=== PATIENT | female | born 1955 | race Caucasian/White ===

== ENCOUNTER 2016-08-25 22:08 | Inpatient (IN) | payer MEDICARE ==
[~2016-08-25] VITALS: Ht 160 cm; Wt 65.6 kg
[~2016-08-25 22:08] MED LIST: ACET-2605 PO; FLUT9.9S NS; LORA1TAB PO; LORA5SOL82 PO; TRAZ-115 PO
[2016-08-25 22:15] VITALS: BP 168/85; PULSE 104; RESP 24; O2SAT 93
--- NOTE | 2016-08-25 23:01 | ED.REPORT ---
HPI-General Illness Date of Service Aug 25, 2016 ED Provider: MD Ming This is a 61 year old female with a history of hereditary hemorrhagic telangiectasia, DVT, Osler-Smallwood Syndrome, chronic iron-deficiency anemia presenting with productive cough that began 3 weeks ago. Associated symptoms include vomiting, diarrhea, and fever. Diarrhea is now resolved. Reports worsening cough and shortness of breath. Denies abdominal pain, headache, bowel , or bladder changes at this time. Nursing Notes Stated Complaint: COUGH,SHORT OF BREATH Chief Complaint: Respiratory Complaints Nursing Notes Reviewed: Yes Allergies: Coded Allergies: Opioids - Morphine Analogues (Verified Adverse Reaction, Mild, Nausea, ) Scheduled PRN Lorazepam (Lorazepam) 1 Mg Tablet 1 MG PO HS PRN PRN For Anxiety or Agitation Temazepam (Temazepam) 7.5 Mg Capsule 7.5 MG PO HS PRN PRN For Insomnia General Time Seen by MD: 23:01 Chief Complaint Cough Hx Obtained From: Patient Arrived By: Walk-in Sudden in Onset?: Yes Onset Occurred: Yesterday Symptom Duration: Since onset Severity: Current: No pain currently Pertinent Negative: Pt denies other symptoms Recent Healthcare: No recent doctor visit, No recent hospitalization Similar Sx Previous: No Past Medical History Past Medical History hereditary hemorrhagic telangiectasia Thrombophlebitis (Right leg DVT 29 yrs ago) Osler-Smallwood Syndrome Chronic iron-deficiency anemia Kidney Stones (s/p lithotripsy) UTI Anxiety Depression Past Surgical History nose and kidney stone Family History hereditary hemorrhagic telangiectasia Smoking History Former Smoker Social History Alcohol Use: 1-3 per week Drug Use: Denies drug use Other Social History: Occupation lives with Ambulatory Status Independent Review of Systems Full Review of Systems Constitutional: Reports: Chills, Fever Respiratory: Reports: Prod cough, white GI: Reports: Diarrhea, Nausea, Denies: Abdominal pain, Constipation Female: Denies: Dysuria Neurologic: Denies: Headache Complete sys rev & neg: except as marked. Physical Exam Vital Signs Vital Signs Date Time Temp Pulse Resp B/P Pulse Ox O2 Delivery O2 Flow Rate FiO2 08/25/16 23:30 112 18 97 Room Air 08/25/16 22:15 37.2 104 24 168/85 93 Room Air Initial VS: Reviewed General/Constitutional: Well-developed, Well-nourished Head / Eyes: Atraumatic, Normocephalic, PERRL ENT: Mucous membranes moist, Conjunctiva normal, No scleral icterus Neck: Supple, Non-tender, Full range of motion Cardiovascular: Regular rate & rhythm, Heart sounds normal, Intact distal pulses Abdomen / GI: Soft, Non-tender, No guarding, No rebound, No distention Extremities: Vascular intact, Neuro intact, No swelling, No tenderness Skin: Warm, Dry, No cyanosis Neurologic: Alert, Oriented, Nonfocal Psychiatric: Mood/affect normal, Behavior normal, Normal thought content Respiratory / Chest: Breath sounds NL Wheezing / Retractions: Positive: Wheeze insp/exp diffuse Interpretation & Diagnostics Lab Results Interpretation Result Diagram: 08/25/165 08/25/16 2325 Test 08/25/16 23:20 08/25/16 23:25 08/25/16 23:38 08/25/16 23:55 Urine Legionella pneumophilia Ag Negative (Negative) White Blood Count 11.8th/mm3 (3.8-10.1) Red Blood Count 4.51mil/mm3 (3.90-5.20) Hemoglobin 13.2g/dL (12.0-15.6) Hematocrit 39.8% (35.0-46.0) Mean Corpuscular Volume 88.2fL (81-100) Mean Corpuscular Hemoglobin 29.3pg (27.0-35.0) Mean Corpuscular Hemoglobin Concent 33.2% (32.0-37.0) Red Cell Distribution Width 13.3% (12.3-15.4) Platelet Count 344bil/L (150-400) Neutrophils (%) (Auto) 72.7% (40-74) Lymphocytes (%) (Auto) 14.9% (14-46) Monocytes (%) (Auto) 10.5% (4-12) Eosinophils (%) (Auto) 1.4% (0-5) Basophils (%) (Auto) 0.2% (0-3) Sodium Level 135mEq/L (134-144) Potassium Level 4.0mEq/L (3.5-5.2) Chloride Level 99mEq/L (97-108) Carbon Dioxide Level 21mmol/L (18-29) Blood Urea Nitrogen 9mg/dL (8-27) Creatinine 0.42mg/dL (0.57-1.00) Estimat Glomerular Filtration Rate 219mL/min (>59) Glucose Level 117mg/dL (60-99) Lactic Acid Level 1.3mmol/L (0.4-2.0) Calcium Level 8.8mg/dL (8.5-10.1) Total Bilirubin 0.5mg/dL (0.0-1.2) Aspartate Amino Transf (AST/SGOT) 39U/L (0-50) Alanine Aminotransferase (ALT/SGPT) 20U/L (0-32) Alkaline Phosphatase 101U/L (25-165) Pro-B-Type Natriuretic Peptide 84.87pg/mL (0-287) Total Protein 7.3g/dL (6.4-8.4) Albumin 3.7g/dL (3.4-5.0) Hold Anderson Top Tube Received (Received) Urine Color Yellow (YELLOW) Urine Appearance Clear (CLEAR,HAZY) Urine pH 6.0 (5.0-8.0) Urine Specific [place] 1.010 (1.003-1.035) Urine Protein Negativemg/dL (NEG,TRACE) Urine Glucose (UA) Negativemg/dL (NEGATIVE) Urine Ketones Negativemg/dL (NEGATIVE) Urine Occult Blood Moderate (NEGATIVE) Urine Nitrite Negative (NEGATIVE) Urine Bilirubin Negative (NEGATIVE) Urine Urobilinogen 1.0mg/dL (NORMAL) Urine Leukocyte Esterase Negative (NEGATIVE) Urine RBC 0-2/hpf (0-2) Urine WBC 0-5/hpf (0-5) Urine Epithelial Cells Occasional/hpf (NONE-MOD) Urine Crystals None seen (NONE SEEN) Urine Bacteria None/hpf (NONE-FEW) Urine Hyaline Casts None/lpf (NONE) Urine Granular Casts None seen (NONE SEEN) Urine Waxy Casts None seen (NONE SEEN) Urine Red Blood Cell Casts None seen (NONE SEEN) Urine White Blood Cell Casts None seen (NONE SEEN) Urine Mucus Present (None Seen) Urine Trichomonas None seen (NONE SEEN) Urine Yeast None (NONE SEEN) Urine Culture Reflexed Not indicated Prothrombin Time 11.1sec (8.1-12.5) Prothromb Time International Ratio 1.04ratio Activated Partial Thromboplast Time 31.5sec (22.8-33.0) X-Ray Chest Interpretation Interpretation / Wet Read by: Wet read ED physician Infiltrate / Pneumothorax: Infiltrate L lower lung Re-Eval/Medical Decision Med Decision/Clinical Course 61-year-old with underlying Osler Smallwood syndrome and hereditary telangiectasia, presents with dyspnea and cough and an infiltrate on her x-ray. She is not much improved after treatment with nebulizers in initial dictation of antibiotics. She remains moderately dyspneic although her oxygen saturations are adequate in the mid 90s. She is admitted for further IV antibiotics and monitoring. Transported in stable condition. Time of Eval: 01:12 Re-Evaluation/Progress Note: Plan for admission, all questions addressed. Consultation : Referral / Consult Name: Joseluis Olmos MD Consulted With: Hospitalist Call Returned at: 01:12 Human Services Assistant: Accepts admit Counseled Regarding: Diagnosis, Lab results, Need for follow-up, Need for admission Discharge & Departure Primary Impression: Pneumonia Pneumonia type: due to unspecified organism Laterality: left Lung location : lower lobe of lung Qualified Code: J18.9 - Pneumonia, unspecified organism Disposition: ADMITTED TO HOSPITAL Discharge Condition All VS Reviewed: Yes Condition: Stable Referrals: NOPCP (PCP) Scribe Attestation Portions of this note were transcribed by Eliu Landrum. I, Dr. Lai personally performed the history, physical exam and medical decision-making; I reviewed and confirmed the accuracy of the information in the transcribed note. Signed by: ame Oconnor. 08/25/2016, 23:00. Pedrito Lai MD Aug 25, 2016 23:01 ELIU LANDRUM Aug 25, 2016 23:10
[2016-08-25] MEDS ORDERED: 0.9% Sodium Chloride 1,000 ML IV ONE (23:09)
[2016-08-25] MEDS ORDERED: cefTRIAXone Inj 2,000 MG in IV Premix 1 EACH IV ONE (23:10)
[2016-08-25] MEDS ORDERED: Albuterol 2.5 mg/3 mL Inhalation Solution NEB ONE (23:10)
[2016-08-25] MEDS ORDERED: Albuterol-Ipratropium 3 mL Inhalation Solution NEB ONE (23:10)
[2016-08-25 23:30] VITALS: PULSE 112; RESP 18; O2SAT 97
[2016-08-25 23:38] LABS: BASOPHILS % (AUTO) 0.2 % (0-3); EOSINOPHILS % (AUTO) 1.4 % (0-5); MONOCYTES % (AUTO) 10.5 % (4-12); Mean Corpuscular Hemoglobin 29.3 pg (27.0-35.0); Mean Corpuscular Volume 88.2 fL (81-100); NEUTROPHILS % (AUTO) 72.7 % (40-74); Platelet Count 344 bil/L (150-400)
[2016-08-25 23:56] LABS: APPEARANCE,URINE CLEAR (CLEAR,HAZY); COLOR,URINE YELLOW (YELLOW); OCCULT BLOOD,URINE MODERATE (NEGATIVE)
[2016-08-26] VITALS (10 sets, daily range): BP systolic 121–155; BP diastolic 53–85; PULSE 91–119; RESP 24–34; O2SAT 94–96
[2016-08-26 00:14] LABS: Magnesium 1.9 mg/dL (1.6-2.6)
[2016-08-26 00:22] LABS: INR 1.04 ratio
[2016-08-26] MEDS ORDERED: Azithromycin Inj 500 MG in Dextrose 5% w/Vial Mate 250 ML IV ONE (01:30)
[2016-08-26] MEDS ORDERED: Polyethylene Glycol (PEG) 17 Gm Powder PO PRN (01:35)
[2016-08-26] MEDS ORDERED: Alum-Mag Hydrox-Simeth 30 mL Suspension PO PRN (01:35)
--- NOTE | 2016-08-26 02:40 | NUR ---
ADMIT Pt arrived on unit at 0209 via gurney no fluid running, arrived with own neb. Transferred self to bed without assistance. Port in r. chest patent. RA. Vital signs significant: 151/73, HR 119, 37.2, 94% on RA, RR 34. Pt has current 4/10 headache states "because I'm so tired and haven't slept." Continuing care.
[2016-08-26] MEDS ORDERED: TEMA7.5C14 PO (03:02)
[2016-08-26] MEDS ORDERED: Codeine-guaiFENesin 10 mL Syrup PO PRN (03:10)
[2016-08-26] MEDS ORDERED: 0.9% Sodium Chloride 250 ML ONE ×2 (03:27→09:00)
--- NOTE | 2016-08-26 03:34 | PCM.HPMED ---
Subjective Date of Service Aug 26, 2016 Primary Provider: Admitting Physician: Joseluis Olmos MD Primary Care Physician: Noperi Attending Physician: Joseluis Olmos MD Chief Complaint: Cough and Shortness of breath History of Present Illness: 61-year-old female with a history of hereditary hemorrhagic telangiectasia, chronic epistaxis, chronic iron deficiency anemia, anxiety, and insomnia presents with a three-week history of increasing productive cough and shortness of breath. The patient states that approximately 3 weeks ago she began to notice these symptoms at the time she has 2 young grandchildren there were coming down with cough and cold type symptoms. Since that time the children have gotten better and now her is also sick with similar symptoms. She states that when she first became sick 3 weeks ago she had a fever as well as nausea and vomiting and diarrhea all of which have improved with time. Her cough is productive with dark sputum described as brownish chowdhury to yellow in color. She denies any blood in her sputum. She last bout of vomiting was approximately 4 days ago and states that that was also without blood or coffee grounds. She denies blood in her diarrhea. The patient states that she has not had her flu vaccination this year. Review of Systems: A comprehensive review of systems is obtained and all are negative except for what included in the history of present illness Allergies Coded Allergies: Opioids - Morphine Analogues (Verified Adverse Reaction, Mild, Nausea, ) Home Medications Lorazepam 1 mg Temazepam 15-30 mg PMH Hereditary hemorrhagic telangiectasia Deep vein thromboses due to thrombophlebitis 29 years ago Chronic iron deficiency anemia Kidney stones treated with lithotripsy Anxiety and depression Insomnia Surgical History Lithotripsy Lasik eye surgery ENT ablation surgery for epistaxis Family History Hereditary hemorrhagic telangiectasia in mother, sister, nephew, and grandson Sister at 56 due to complications of HHT Maternal grandmother had a stroke likely due to brain aneurysm associated with HHT Social History Occupation: disability Hx Alcohol Use: Yes Hx Substance Use: No Hx Tobacco Use: No Smoking Status: Former Smoker (quit in 1995) Exam Vital Signs Vital Sign - Last Date Time Temp Pulse Resp B/P Pulse Ox O2 Delivery O2 Flow Rate FiO2 08/25/16 23:30 112 18 97 Room Air 08/25/16 22:15 37.2 168/85 Intake and Output 08/25/16 08/25/16 08/26/16 Cumulative From/Thru 15:00 23:00 07:00 08/25/16 22:15 - 08/25/16 23:55 Intake Total 1000 ml 1000 ml Balance 1000 ml 1000 ml Intake IV Total 1000 ml 1000 ml Exam General: Middle age female in no acute distress, alert and cooperative, non toxic appearing Eyes: PERRLA, EOMI, anicteric sclera HENT: MMM, without central cyanosis, dried blood in right nare but no rhinorrhea noted, no post nasal drip, no cobblestoning mucosa NEck: Trachia midline, no carotid bruits, no jvd, no thyromegaly no thyroid nodules CV: tachycardia with regular rhythm, no murmurs rubs or gallops noted, no S3/S4 , no heaves or thrills, port on right side or chest Lungs: tachypneic using some accessory muscles but not in distress, course breath sounds noted in left > right lower lung fiore without wheezing or rhonchi Abdomen: normoactive bowel sounds, nondistended, tympanic to percussion, no pain on palpation Ext: mild Pretibial edema, pulse intact at radial and dorsalis pedis bilaterally Neuro: CN II-XII grossly intact without focal deficits Psych: Normal mood and affect : no ring in place Lab and Diagnostics Result Diagram: 08/25/16232408/25/162324 X-Rays, CTs and MRIs Chest x-ray preliminary read shows possible lower lobar pneumonia Assessment & Plan 61-year-old female past medical history remarkable for hereditary hemorrhagic telangiectasia with chronic nose bleeds and chronic iron deficiency anemia presents with a three-week history of increasing shortness of breath and productive cough admitted for likely pneumonia. 1. Sepsis, acute - SIRS positive with HR 112 and RR 24 - report of xray positive for left lower lobe PNA - WBC 11.8k no report of bands - Lactate ordered and will trend in two hours - Procalcitonin ordered pending, ordered repeat daily testing 2. pneumonia, acute - given sick child contacts this is likely a previous viral illness with now superimposed bacterial infection - meets criteria for sepsis as described above - ordered legionella ur Ag, and Strep Pneumo ur Ag, as well and MRSA nasal swab - blood cultures and sputum cultures ordered - started on antibiotics Ceftriaxone and Azithromycin to cover likely gram + / - and atypical infections - will trend lactate and procalcitonin - codeine with guaifenesin to control cough - encourage influenza vaccination in the future possibly prior to discharge 3. Hereditary hemorrhagic telangiectasia, chronic - No medications necessary - We will avoid subcutaneous heparin PE prophylaxis due to risk of hemorrhage ( HHT is prone to brain aneurysms with coughing causing increased intracranial pressure) will encourage ambulation and SCD 4. Insomnia, chronic - Temazepam 15 mg when necessary, patient takes this medication as an outpatient 5. Anxiety, chronic - Lorazepam 1mg outpatient will be held and left for medical team tomorrow CODE STATUS is full Disposition: Patient is admitted to inpatient given expected length of stay likely greater than two midnights, no anticipated barriers to discharge at this time. Pain Evaluation: Adequate Pain Control GI Prophylaxis: Not indicated VTE Prophylaxis Indicated: Contraindicated (given HHT and coughing will avoid heparin and encourage ambulation) VTE Prophylaxis: SCDs VTE Mechanical Devices: Intermittant Pneumatic CD Resuscitation Status: CPR: Attempt Resuscitation Attending Statement The patient was seen and examined together with Dr. Miller on 08/26/16 and I agree with the history, exam and plan as outlined in the note above. MICHAEL MILLER DO Aug 26, 2016 02:04 Joseluis Olmos MD Aug 26, 2016 06:09
--- NOTE | 2016-08-26 08:22 | DRSVH ---
PROCEDURE: X-RAY CHEST, TWO VIEWS ([id number]) INDICATIONS: cough TECHNIQUE: 2 views of the chest were acquired. COMPARISON: [facility], CR, CHEST 2VW, 02/25/2015, 15:04. FINDINGS: Surgical changes and devices: Port-A-Cath from right sided approach appears normal Lungs and pleura: No pleural effusions or pneumothorax. Lungs are abnormal at the left lung base be hind the heart where pneumonia appears present with mild alveolar stranding. Mediastinum: Mediastinal contours are normal. Heart size is normal. Bones and chest wall: No suspicious bony abnormalities. Soft tissues appear unremarkable. IMPRESSION: Retrocardiac left lower lobe pneumonia, mild in severity. This area appeared normal on c hest 2 views 02/23. Dictated by: Rosalio Lugo M.D. on 08/26/2016 at 8:21 Approved by: Rosalio Lugo M.D. on 08/26/2016 at 8:21
[2016-08-26] MEDS ORDERED: Influenza (Adult) Vaccine 0.5 mL Syringe IM ONE (08:30)
[2016-08-26] MEDS: cefTRIAXone Inj 2,000 MG in IV Premix 1 EACH IV SCH (09:13)
[2016-08-26] MEDS: Azithromycin Inj 500 MG in Dextrose 5% w/Vial Mate 250 ML IV SCH (10:03)
[2016-08-26 12:29] LABS: BASOPHILS % (AUTO) 0.2 % (0-3); EOSINOPHILS % (AUTO) 0.4 % (0-5); MONOCYTES % (AUTO) 12.7 % (4-12); Mean Corpuscular Hemoglobin 29.4 pg (27.0-35.0); Mean Corpuscular Volume 88.2 fL (81-100); NEUTROPHILS % (AUTO) 71.9 % (40-74); Platelet Count 293 bil/L (150-400)
--- NOTE | 2016-08-26 14:15 | NUR ---
ARIAS PT complained of ARIAS pain, reports uses tylenol at home. paged with request for PO Tylenol. New order generated. This RN went to bedside, pt is sleeping, offered dose of Tylenol, pt declined at this time, reports is feeling better, however would like to have the med available "just in case" Pt advised medication will be available should she need it. Call light in place, will continue to monitor.
--- NOTE | 2016-08-26 14:42 | NUR ---
Social Work Note: Initial Assessment Data& Assessment: EMR reviewed. SW met with pt at bedside to discuss discharge planning, SW role explained. Arti Cotton is a 61 year old female admitted for respiratory distress. Pt has [employer] Medicare and sees Dr. Reyes for most of her medical care, but does not have a regular PCP. Pt lives in [place] with her spouse and is independent at baseline. Pt does not use any DME. Pt does help with chores and meal prep. Pt denies nay HH or SNF hx. Pt denies LTC insurance or VA benefits. Pt lives in a one story home with five steps to enter the house. Pt drives. Pt provided with DPOA paperwork to review and complete when possible. Pt to transport pt home when medically ready. Pt denies any needs at this time. SW provided SW phone number on [employer]. SW to continue to follow if any needs arise. No other discharge needs identified at this time. Plan: Anticipated discharge home via POV when medically ready. Pt denies any needs at this time. SW to continue to follow if any needs arise. No other discharge needs identified at this time. AMOR Smith Addendum: 08/26/16 at 1446 by JOHN JAUREGUI Amended: Links added.
[2016-08-26] MEDS: 0.9% Sodium Chloride 250 ML IV SCH (16:14)
[2016-08-26] MEDS ORDERED: Sodium Chloride LOK Flush 10 mL Syringe IVFLUSH PRN ×2 (16:15)
[2016-08-26] MEDS ORDERED: HepLOK Flush 100 unit/mL 5 mL Inj IVFLUSH PRN (16:15)
[2016-08-26] MEDS ORDERED: diphenhydrAMINE 25 mg Capsule PO PRN (16:45)
--- NOTE | 2016-08-26 22:24 | PCM.PNMED ---
Subjective Date of Service Aug 26, 2016 Subjective Patient is feeling a little bit better today. She has no new complaints. She still has significant cough and shortness of breath. Exam Vital Signs Vital Sign - Last Date Time Temp Pulse Resp B/P Pulse Ox O2 Delivery O2 Flow Rate FiO2 08/26/16 20:29 148/85 08/26/16 20:22 36.7 95 26 96 Room Air Intake and Output 08/25/16 08/25/16 08/26/16 Cumulative From/Thru 15:00 23:00 07:00 08/25/16 22:15 - 08/26/16 06:49 Intake Total 1338 ml 1338 ml Output Total 150 ml 150 ml Balance 1188 ml 1188 ml Intake Oral 100 ml 100 ml IV Total 1238 ml 1238 ml Output Urine Total 150 ml 150 ml # Bowel Movements 0 0 Exam Normal: Patient is in no apparent distress lying in bed with oxygen on. HEENT: Head is atraumatic normocephalic. Eyes: Pupils are equally round and reactive to light and accommodation. Extraocular muscles are intact. Sclera are white anicteric. Subconjunctival mucosa is pink. Ears and nose are unremarkable. Oropharynx: There is no mucosal lesions, there is no thrush, there is no pharyngitis. Neck: Is supple, there is no nodes, or masses or tenderness. Chest: Is significant for bibasilar rales and scattered rhonchi and scattered wheezes throughout. Heart: Rate, rhythm is regular. There is no murmur, rub or gallop. Abdomen: Good bowel sounds are present. Abdomen is soft, nontender, no organomegaly or masses were appreciated. Extremities: Are symmetrical and well perfused. There is no edema, there is no cellulitis, no rash. Neurologic: There are no focal neurological deficits. Cranial nerves II through XII are intact. There are no sensory or motor deficits. Psychiatric: Patients mood is calm and shows no sign of agitation. Genital: Deferred Rectal: Deferred Lab and Diagnostics Result Diagram: 08/26/16 1200 08/26/16 1200 Microbiology Name: ANDREA DE LA CRUZ Age/Sex: 61/F Attend Dr: Joseluis Olmos MD Acct: [id number] Unit: [id number] Status: ADM IN Location: [facility] 3008-1 Re08/26/16 Disch: Specimen: [id number] Collected: 08/25/16 Status: RES Req#: [id number] Received: 08/26/16 Source: SPUTUM EXP Sp Desc : Subm Dr: Pedrito Lai MD Ordered: GRAM SPT REFLEX, SPUTUM CULTURE Comments: Collected by Nurse/Unit? Y/N Y Procedure Result Verified Site Microbiology ALE CULT SPUTUM GS Final 08/26/16 SPT GRAM STAIN MANY POLYS RARE EPITHELIAL CELLS MODERATE MIXED NORMAL MARY KATE This Spec is of good Quality and acceptable for Cult INFLUENZA A PCR Final 08/26/16-5 Organism 1 INFLUENZA A H3 INFLUENZA A PCR DETECTED TIME CALLED: 103 DATE CALLED: 08/26/16 FLOOR/DOCTOR: TAMEKA/MONTEZ Harris CALLED BY: VF The performance of the film array RVP has not been established in individuals who have received the influenza vaccine. Recent administration of a nasal influenza vaccine may cause false positive results for Influenza A and/or Influenza B. X-Rays, CTs and MRIs Chest x-ray preliminary read shows possible lower lobar pneumonia Assessment & Plan 61-year-old female past medical history remarkable for hereditary hemorrhagic telangiectasia with chronic nose bleeds, and chronic iron deficiency anemia, who presents with a three-week history of increasing shortness of breath and productive cough admitted for likely pneumonia. 1. Sepsis, acute - SIRS positive with HR 112 and RR 24 - report of xray positive for left lower lobe PNA - WBC 11.8k no report of bands - Lactate ordered and will trend in two hours - Procalcitonin ordered pending, ordered repeat daily testing 2. pneumonia, acute -Secondary to Influenza A. Will start Tamiflu 75 mg by mouth twice a day. - Patient has a history of sick child contacts this patient now has a superimposed bacterial infection - Patient meets criteria for sepsis as described above - Test that have been ordered are ordered legionella ur Ag, and Strep Pneumo ur Ag, as well and MRSA nasal swab - Blood cultures and sputum cultures ordered - Continue on antibiotics Ceftriaxone and Azithromycin to cover likely gram + / - and atypical infections - Continue to trend lactate and procalcitonin - Continue with codeine with guaifenesin to control cough 3. Hereditary hemorrhagic telangiectasia, chronic - No medications necessary - We will avoid subcutaneous heparin PE prophylaxis due to risk of hemorrhage ( HHT is prone to brain aneurysms with coughing causing increased intracranial pressure) will encourage ambulation and SCD 4. Insomnia, chronic - Temazepam 15 mg when necessary, patient takes this medication as an outpatient. However, this has not been working for the patient. - While in the hospital will order Benadryl and Tylenol daily at bedtime when necessary for insomnia 5. Anxiety, chronic - Lorazepam 1mg outpatient will be held and left for medical team tomorrow CODE STATUS is full Disposition: Will depend on patient's response to antibiotics etc.. Pain Evaluation: Adequate Pain Control GI Prophylaxis: Not indicated VTE Prophylaxis: SCDs VTE Mechanical Devices: Intermittant Pneumatic CD Resuscitation Status: CPR: Attempt Resuscitation [place] MD Aug 26, 2016 22:24
[2016-08-26] MEDS: LORazepam 1 mg Tablet PO PRN (23:35)
[2016-08-27 00:16] VITALS: PULSE 93
--- NOTE | 2016-08-27 04:00 | NUR ---
headache Pt complained of headache and asked for Tylenol. Gave Tylenol 650 mg. with good results. Left room with call light at bedside.
[2016-08-27 05:48] VITALS: BP 146/76; PULSE 95; RESP 26; O2SAT 97
[2016-08-27 06:05] LABS: BASOPHILS % (AUTO) 0.2 % (0-3); EOSINOPHILS % (AUTO) 3.6 % (0-5); MONOCYTES % (AUTO) 10.5 % (4-12); Mean Corpuscular Hemoglobin 29.1 pg (27.0-35.0); Mean Corpuscular Volume 88.3 fL (81-100); NEUTROPHILS % (AUTO) 60.7 % (40-74); Platelet Count 314 bil/L (150-400)
[2016-08-27 06:26] LABS: Magnesium 2.1 mg/dL (1.6-2.6)
[2016-08-27] MEDS: cefTRIAXone Inj 2,000 MG in IV Premix 1 EACH IV SCH (08:10)
[2016-08-27 08:45] LABS: ERYTHROCYTE SEDIMENTATION RATE 30 mm/hr (0-40)
[2016-08-27] MEDS: Azithromycin Inj 500 MG in Dextrose 5% w/Vial Mate 250 ML IV SCH (09:15)
[2016-08-27] MEDS: 0.9% Sodium Chloride 250 ML IV SCH (09:15)
[2016-08-27 09:19] VITALS: BP 132/82; PULSE 92; RESP 28; O2SAT 93
--- NOTE | 2016-08-27 09:47 | DRSVH ---
PROCEDURE: X-RAY CHEST, TWO VIEWS ([id number]) INDICATIONS: Follow up for Pneumonia TECHNIQUE: 2 views of the chest were acquired. COMPARISON: [facility], CR, XR CHEST 2VW, 08/25/2016, 22:32. FINDINGS: Surgical changes and devices: Right chest port with the tip unchanged projecting in the lower SVC Lungs and pleura: No pleural effusions or pneumothorax. Lungs are hyperinflated however no acute di sease. Bibasilar scar/atelectasis, unchanged. Mediastinum: Mediastinal contours are normal. Heart size is normal. Bones and chest wall: No suspicious bony abnormalities. Soft tissues appear unremarkable. IMPRESSION: No acute disease. Unchanged, bibasilar mild patchy opacities presumably low-grade atelectasis or scar ring Hyperinflated lungs in keeping with chronic obstructive physiology Dictated by: Robert Gallardo M.D. on 08/27/2016 at 9:45 Approved by: Robert Gallardo M.D. on 08/27/2016 at 9:45
[2016-08-27] MEDS: Ondansetron 2 mg/mL 2 mL Inj IVPUSH PRN ×2 (11:24→17:33)
--- NOTE | 2016-08-27 12:48 | DRSVH ---
[facility] [address] [place] [address] Echocardiogram Report Name: ANDREA DE LA CRUZ Date: 08/27/2016 Height: 64 in Hospital Exam Location: [facility] Weight: 146 lb Gender: Female BSA: 1.7 m2 : 1955 Age: 61 yrs BP: 146/ 76 mmHg Reason For Study: SOB, POSSIBLE CARDIOMYOPATHY Ordering Physician: HOSPITALIST [facility] Performed By: Rishi Angel Referring Physician: ELIANA PRADHAN Interpretation Summary The left ventricle is normal in size, wall thickness, and systolic function without any focal wall motion abnormalities. The ejection fraction is estimated to be 55-60%. Septal motion is consistent with conduction abnormality. Diastolic function could not be accurately assessed due to contradictory data. Increased E/E' is suggestive of increased LV filling pressures but RVSP is normal which would negate this. Clinical correlation is recommended. The right ventricle is normal in size, thickness and function. The right ventricular systolic pressure is estimated at 23 mmHg assuming a right atrial pressure of 3 mm Hg. The left atrium is mildly dilated. Right atrial size is normal. There is no significant valvular heart disease. The aortic root is normal size. Otherwise, no significant changes with comparing to the last two echocardiograms. Procedure: A two-dimensional transthoracic echocardiogram with color flow and Doppler was performed. The study quality was technically good. Comparison is made with the echocardiogram of 08/09/15. The patient had a bundle branch block rhythm during the exam. Left Ventricle: The left ventricle is normal in size, wall thickness, and systolic function without any focal wall motion abnormalities. The ejection fraction is estimated to be 55-60%. Septal motion is consistent with conduction abnormality. There are no focal wall motion abnormalities. Diastolic function could not be accurately assessed due to contradictory data. E/E' is suggestive of increased LV filling pressures but RVSP is normal which would negate this. Clinical correlation is recommended. Right Ventricle: The right ventricle is normal in size, thickness and function. Atria: The left atrium is mildly dilated. Right atrial size is normal. The interatrial septum is intact with no evidence for an atrial septal defect. Mitral Valve: The mitral valve is normal. There is trace mitral regurgitation. Aortic Valve: The aortic valve is normal in structure and function. No aortic regurgitation is present. Tricuspid Valve: The tricuspid valve is normal. There is trace tricuspid regurgitation. The right ventricular systolic pressure is estimated at 23 mmHg assuming a right atrial pressure of 3 mm Hg. Pulmonic Valve: The pulmonic valve is not well visualized. There is no significant valvular heart disease. Great Vessels: The aortic root is normal size. The dimensions of the ascending aorta are normal. The pulmonary artery is normal size. The IVC is of normal diameter and collapses greater than 50% with a sniff. This suggests a low right atrial pressure of 3 mm Hg. Pericardium/ Pleura There is no pericardial effusion. There is no pleural effusion. MMode/2D Measurements & Calculations LVIDd: 5.2 cm RA long axis: 4.1 cm LVOT diam: 2.0 cm LVIDs: 3.4 cmLA A2 area: 18.3 cm AoV Openin.0 cm FS: 34.4 % LA A4 area: 18.2 cm RA area: 13.2 cm Ao root diam: 3.0 cm EPSS: 0.51 cmLA length (vol) RA vol: 36.1 ml Ao Arch Diam IVSd: 0.88 cm RA : 21.1 ml/m2 (Proximal trans.) LVPWd LA vol: 65.8 ml : 0.8cm LA vol index IVC diam: 1.6 cm EDV(MOD-sp2) LV wong. diameter/BSA LV sys. diameter/BSA RVD1 (basal): 3.5 cm : 117.5 ml (cm/m^2): 3.0 (cm/m^2): 2.0 TAPSE: 2.6 cm Doppler Measurements & Calculations Ao V2 max MV E max quang MV E/A: 1.1 TR max quang : 172.9 cm/sec : 125.2 cm/sec Med Peak E' Quang : 222.4 cm/sec Ao max P.0 mmHg MV A max quang TR max PG Ao mean P.2 mmHg : 117.4 cm/sec E/E' med: 19.5 : 19.8 mmHg LVOT Max Quang Lat Peak E' Quang PA V2 max : 145.0 cm/sec MVA(VTI): 2.8 cm2 : 114.8 cm/sec E/E' lat: 15.1 PA mean PG HELIO(I,D): 2.5 cm Pulm A Revs Dur : 3.1 mmHg sev ratio: 0.79 MV V2 mean Ao V2 mean LV V1 max PG PA V2 mean : 83.3 cm/sec : 118.1 cm/sec : 83.9 cm/sec MV mean P.1 mmHg Ao V2 VTI: 33.5 cmLV V1 VTI PA pr(Accel) MV V2 VTI: 29.4 cm : 26.6 cm : 21.4 mmHg MV dec time: 0.12 sec HELIO(V,D): 2.6 cm2 HELIO indexed to BSA E/e' average (cm^2/m^2): 1.4 : 17.3 Reading Physician:PASQUALE
--- NOTE | 2016-08-27 13:51 | NUR ---
pt continues to complain of H.A. and requests Tylenol this RN will administer 650mg Tylenol and recheck pt in half an hour call light with pt.
[2016-08-27 14:01] VITALS: BP 127/83; PULSE 88; RESP 26; O2SAT 95
[2016-08-27 17:52] VITALS: BP 144/84; PULSE 87; RESP 26; O2SAT 95
[2016-08-27 22:27] VITALS: BP 134/78; PULSE 86; RESP 24; O2SAT 95
[2016-08-27] MEDS: LORazepam 1 mg Tablet PO PRN (23:06)
--- NOTE | 2016-08-27 23:39 | PCM.PNMED ---
Subjective Date of Service Aug 27, 2016 Subjective Patient has no new complaints. She states if she takes a Tylenol around-the- clock her headache is controlled. She still complains of cough but this has improved. Exam Vital Signs Vital Sign - Last Date Time Temp Pulse Resp B/P Pulse Ox O2 Delivery O2 Flow Rate FiO2 08/27/16 22:27 36.8 86 24 134/78 95 Room Air Intake and Output 08/26/16 08/26/16 08/27/16 Cumulative From/Thru 15:00 23:00 07:00 08/25/16 22:15 - 08/27/16 05:42 Intake Total 1729 ml 3067 ml Output Total 150 ml Balance 1729 ml 2917 ml Intake Oral 1356 ml 1456 ml IV Total 373 ml 1611 ml Output Urine Total 150 ml # Voids 4 4 # Bowel Movements 1 1 Exam Normal: Patient is in no apparent distress lying in bed with oxygen on. HEENT: Head is atraumatic normocephalic. Eyes: Pupils are equally round and reactive to light and accommodation. Extraocular muscles are intact. Sclera are white anicteric. Subconjunctival mucosa is pink. Ears and nose are unremarkable. Oropharynx: There is no mucosal lesions, there is no thrush, there is no pharyngitis. Neck: Is supple, there are no nodes, or masses or tenderness. Chest: Is significant for bibasilar rales and scattered rhonchi and scattered wheezes throughout. Heart: Rate, rhythm is regular. There is no murmur, rub or gallop. Abdomen: Good bowel sounds are present. Abdomen is soft, nontender, no organomegaly or masses were appreciated. Extremities: Are symmetrical and well perfused. There is no edema, there is no cellulitis, no rash. Neurologic: There are no focal neurological deficits. Cranial nerves II through XII are intact. There are no sensory or motor deficits. Psychiatric: Patients mood is calm and shows no sign of agitation. Genital: Deferred Rectal: Deferred Lab and Diagnostics Result Diagram: 08/27/1645 08/27/1645 Microbiology Name: ANDREA DE LA CRUZ Age/Sex: 61/F Attend Dr: Joseluis Olmos MD Acct: [id number] Unit: [id number] Status: ADM [place] [facility] [place]8-1 Re08/26/16 Disch: Specimen: [id number] Collected: 08/25/16 Status: RES Req#: [id number] Received: 08/26/16 Source: SPUTUM EXP Sp Desc : Subm Dr: Ming, Eliana Souza MD Ordered: GRAM SPT REFLEX, SPUTUM CULTURE Comments: Collected by Nurse/Unit? Y/N Y Procedure Result Verified Site Microbiology ALE CULT SPUTUM GS Final 08/26/16 SPT GRAM STAIN MANY POLYS RARE EPITHELIAL CELLS MODERATE MIXED NORMAL MARY KATE This Spec is of good Quality and acceptable for Cult INFLUENZA A PCR Final 08/26/16-1035 Organism 1 INFLUENZA A H3 INFLUENZA A PCR DETECTED TIME CALLED: 1033 DATE CALLED: 08/26/16 FLOOR/DOCTOR: TAMEKA/MONTEZ Harris CALLED BY: VF The performance of the film array RVP has not been established in individuals who have received the influenza vaccine. Recent administration of a nasal influenza vaccine may cause false positive results for Influenza A and/or Influenza B. X-Rays, CTs and MRIs Chest x-ray preliminary read shows possible lower lobar pneumonia Cardiac Echo Impressions Echocardiogram Report Name: ANDREA DE LA CRUZ AStudy Date: 08/27/2016 Height: 64 in Hospital Exam Location: [facility] Weight: 146 lb Gender: Female BSA: 1.7 m2 : 1955 Age: 61 yrs BP: 146/ 76 mmHg Reason For Study: SOB, POSSIBLE CARDIOMYOPATHY Ordering Physician: HOSPITALIST [facility] Performed By: Rishi Angel Referring Physician: ELIANA CONNORS Interpretation Summary The left ventricle is normal in size, wall thickness, and systolic function without any focal wall motion abnormalities. The ejection fraction is estimated to be 55-60%. Septal motion is consistent with conduction abnormality. Diastolic function could not be accurately assessed due to contradictory data. Increased E/E' is suggestive of increased LV filling pressures but RVSP is normal which would negate this. Clinical correlation is recommended. The right ventricle is normal in size, thickness and function. The right ventricular systolic pressure is estimated at 23 mmHg assuming a right atrial pressure of 3 mm Hg. The left atrium is mildly dilated. Right atrial size is normal. There is no significant valvular heart disease. The aortic root is normal size. Otherwise, no significant changes with comparing to the last two echocardiograms. 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 1. Sepsis, acute - SIRS positive with HR 112 and RR 24 - Report of xray positive for left lower lobe PNA - WBC 11.8k no report of bands - Lactate ordered and will trend in two hours - Procalcitonin ordered pending, ordered repeat daily testing 2. Pneumonia, acute -Secondary to Influenza A. Will start Tamiflu 75 mg by mouth twice a day. - Patient has a history of sick child contacts this patient now has a superimposed bacterial infection - Patient meets criteria for sepsis as described above - Test that have been ordered are ordered legionella ur Ag, and Strep Pneumo ur Ag, as well and MRSA nasal swab - Blood cultures and sputum cultures ordered and are pending - Continue on antibiotics Ceftriaxone and Azithromycin to cover likely gram + / - and atypical infections - Continue to trend lactate and procalcitonin - Continue with codeine with guaifenesin to control cough 3. Hereditary hemorrhagic telangiectasia, chronic -Patient had a nosebleed this morning - No medications necessary - We will avoid subcutaneous heparin PE prophylaxis due to risk of hemorrhage ( HHT is prone to brain aneurysms with coughing causing increased intracranial pressure) will encourage ambulation and SCD 4. Insomnia, chronic - Temazepam 15 mg when necessary, patient takes this medication as an outpatient. However, this has not been working for the patient. - While in the hospital will order Benadryl and Tylenol daily at bedtime when necessary for insomnia 5. Anxiety, chronic - Lorazepam 1mg outpatient will be held and left for medical team tomorrow CODE STATUS is full Disposition: Will depend on patient's response to antibiotics etc.. Pain Evaluation: Adequate Pain Control GI Prophylaxis: Not indicated VTE Prophylaxis: SCDs VTE Mechanical Devices: Intermittant Pneumatic CD Resuscitation Status: CPR: Attempt Resuscitation Eliana Connors MD Aug 27, 2016 23:39
--- NOTE | 2016-08-28 05:26 | NUR ---
SOB/Ambulation Pt denies chest pain. States that she's still having a mild sob upon exertion. Pt ambulated around hallways with mask on and has been tolerating well. Pt is currently on RA. Denies n/v and abd discomfort. HS meds administered as scheduled, hourly rounding done and pt has slept most of the night.
[2016-08-28 05:33] VITALS: BP 132/79; PULSE 85; RESP 24; O2SAT 94
[2016-08-28] MEDS ORDERED: cefTRIAXone Inj 2,000 MG in Dextrose 5% Minibag Plus 50 ML IV SCH (08:30)
[2016-08-28 09:13] LABS: BASOPHILS % (AUTO) 0.2 % (0-3); EOSINOPHILS % (AUTO) 4.8 % (0-5); MONOCYTES % (AUTO) 11.5 % (4-12); Mean Corpuscular Hemoglobin 28.7 pg (27.0-35.0); Mean Corpuscular Volume 89.3 fL (81-100); NEUTROPHILS % (AUTO) 54.6 % (40-74); Platelet Count 381 bil/L (150-400)
[2016-08-28] MEDS: Azithromycin Inj 500 MG in Dextrose 5% w/Vial Mate 250 ML IV SCH (09:16)
[2016-08-28 14:16] VITALS: BP 131/82; PULSE 89; RESP 24; O2SAT 95
--- NOTE | 2016-08-28 15:35 | PCM.DIMED ---
Lewis Phelan DO 08/28/16 1535: Discharge Instructions Date of Service Aug 28, 2016 Dates of Hospitalization Aug 26, 2016 at 01:38 Discharge Diagnosis Discharge Diagnosis Post Viral Pneumonia, acute Sepsis, resolved Hereditary hemorrhagic telangiectasia, chronic Insomnia, chronic Anxiety, chronic Medication Instructions Post Viral Pneumonia, acute -- You have what looks like postviral pneumonia. Condition has quite improved compared to initial examination. -- You are prescribed with 2 medications -- First medication is Tamiflu. Please take Tamiflu 75 mg tablet twice a day for the next 2 1/2 days. -- Recommend medication: Azithromycin 250 mg tablet, please take tablet daily for 3 days -- I have given you Etienne Braxton to help with the cough. He can take 1 pill every 8 hours. -- Have made appointment for a hospital follow-up at the [facility]. -- The appointment is on September 04 at 4:30 PM. Please come 30 minutes prior to the appointment for check in. Diet No restrictions Activity No restrictions Call your provider Fever or Chills, Shortness of breath, Chest pain, Excessive diarrhea Patient Instructions Seek care immediately if: You cough up blood. Your heart beats more than 100 beats in 1 minute. You are very tired, confused, and cannot think clearly. You have chest pain or trouble breathing. Your lips or fingernails turn chowdhury or blue. Contact your healthcare provider if: Your symptoms do not get better or get worse. You have a fever higher than 101F (38.3C). You cannot eat or have loss of appetite, nausea, or vomiting. You have questions or concerns about your condition or care Follow-up Provider: Adonay Mathew Follow-up with PCP in: 1 week Dinh Bang DO 08/29/16 0804: Discharge Instructions Attending's Statement Read and agree Lewis Phelan DO Aug 28, 2016 15:35 Dinh Bang DO Aug 29, 2016 08:04
[2016-08-28] MEDS ORDERED: ZIT250 PO (15:39)
[2016-08-28] MEDS ORDERED: BENZ-12 PO (15:39)
[2016-08-28] MEDS ORDERED: TAM75UDCAP PO (15:39)
--- NOTE | 2016-08-28 15:41 | PCM.PNMED ---
Subjective Date of Service Aug 28, 2016 Exam Vital Signs Vital Sign - Last Date Time Temp Pulse Resp B/P Pulse Ox O2 Delivery O2 Flow Rate FiO2 08/28/16 05:33 36.7 85 24 132/79 94 Room Air Intake and Output 08/27/16 08/27/16 08/28/16 Cumulative From/Thru 15:00 23:00 07:00 08/25/16 22:15 - 08/28/16 05:07 Intake Total 300 ml 501 ml 3868 ml Output Total 150 ml Balance 300 ml 501 ml 3718 ml Intake Oral 300 ml 1756 ml IV Total 501 ml 2112 ml Output Urine Total 150 ml # Voids 2 6 # Bowel Movements 0 1 Lab and Diagnostics Result Diagram: 08/27/1654408/27/16544 Microbiology Name: ANDREA DE LA CRUZ Merrick Age/Sex: 61/F Attend Dr: Joseluis Olmos MD Acct: [id number] Unit: [id number] Status: [place] [facility] [place] Re08/26/16 Disch: Specimen: [id number] Collected: 08/25/16 Status: RES Req#: [id number] Received: 08/26/16 Source: SPUTUM EXP Sp Desc : Subm Dr: Pedrito Lai MD Ordered: GRAM SPT REFLEX, SPUTUM CULTURE Comments: Collected by Nurse/Unit? Y/N Y Procedure Result Verified Site Microbiology ALE CULT SPUTUM GS Final 08/26/16-0820 SPT GRAM STAIN MANY POLYS RARE EPITHELIAL CELLS MODERATE MIXED NORMAL MARY KATE This Spec is of good Quality and acceptable for Cult INFLUENZA A PCR Final 08/26/16-1035 Organism 1 INFLUENZA A H3 INFLUENZA A PCR DETECTED TIME CALLED: 1034 DATE CALLED: 08/26/16 FLOOR/DOCTOR: TAMEKA/MONTEZ Harris CALLED BY: VF The performance of the film array RVP has not been established in individuals who have received the influenza vaccine. Recent administration of a nasal influenza vaccine may cause false positive results for Influenza A and/or Influenza B. X-Rays, CTs and MRIs Chest x-ray preliminary read shows possible lower lobar pneumonia Cardiac Echo Impressions Echocardiogram Report Name: ANDREA DE LA CRUZ AStudy Date: 08/27/2016 Height: 64 in Hospital Exam Location: [facility] Weight: 146 lb Gender: Female BSA: 1.7 m2 : 1955 Age: 61 yrs BP: 146/ 76 mmHg Reason For Study: SOB, POSSIBLE CARDIOMYOPATHY Ordering Physician: HOSPITALIST [facility] Performed By: Rishi Angel Referring Physician: PEDRITO PRADHAN Interpretation Summary The left ventricle is normal in size, wall thickness, and systolic function without any focal wall motion abnormalities. The ejection fraction is estimated to be 55-60%. Septal motion is consistent with conduction abnormality. Diastolic function could not be accurately assessed due to contradictory data. Increased E/E' is suggestive of increased LV filling pressures but RVSP is normal which would negate this. Clinical correlation is recommended. The right ventricle is normal in size, thickness and function. The right ventricular systolic pressure is estimated at 23 mmHg assuming a right atrial pressure of 3 mm Hg. The left atrium is mildly dilated. Right atrial size is normal. There is no significant valvular heart disease. The aortic root is normal size. Otherwise, no significant changes with comparing to the last two echocardiograms. 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 1. Sepsis, acute - SIRS positive with HR 112 and RR 24 - Report of xray positive for left lower lobe PNA - WBC 11.8k no report of bands - Lactate ordered and will trend in two hours - Procalcitonin ordered pending, ordered repeat daily testing 2. Pneumonia, acute -Secondary to Influenza A. Will start Tamiflu 75 mg by mouth twice a day. - Patient has a history of sick child contacts this patient now has a superimposed bacterial infection - Patient meets criteria for sepsis as described above - Test that have been ordered are ordered legionella ur Ag, and Strep Pneumo ur Ag, as well and MRSA nasal swab - Blood cultures and sputum cultures ordered and are pending - Continue on antibiotics Ceftriaxone and Azithromycin to cover likely gram + / - and atypical infections - Continue to trend lactate and procalcitonin - Continue with codeine with guaifenesin to control cough 3. Hereditary hemorrhagic telangiectasia, chronic -Patient had a nosebleed this morning - No medications necessary - We will avoid subcutaneous heparin PE prophylaxis due to risk of hemorrhage ( HHT is prone to brain aneurysms with coughing causing increased intracranial pressure) will encourage ambulation and SCD 4. Insomnia, chronic - Temazepam 15 mg when necessary, patient takes this medication as an outpatient. However, this has not been working for the patient. - While in the hospital will order Benadryl and Tylenol daily at bedtime when necessary for insomnia 5. Anxiety, chronic - Lorazepam 1mg outpatient will be held and left for medical team tomorrow CODE STATUS is full Disposition: treating pneumonia and flu. D/c in 1-2 days. GI Prophylaxis: Not indicated VTE Prophylaxis: SCDs VTE Mechanical Devices: Intermittant Pneumatic CD Resuscitation Status: CPR: Attempt Resuscitation Lewis Phelan DO Aug 28, 2016 08:52
--- NOTE | 2016-08-28 15:53 | NUR ---
Social Work-discharge: data:EMR reviewed. Pt is on day 2 of hospitalization for respiratory distress per H&P. Pt is medically stable to discharge home today. Pt has been up independent in her room. Pt's to provide transport home. No discharge needs identified. All updated and agreeable to plan. Assessment:Pt who is independent at baseline. Plan:Pt to discharge home today via POV. No discharge needs identified. All updated and agreeable to plan. AMOR Juarez
--- NOTE | 2016-08-28 16:42 | NUR ---
discharge paperwork reviewed, no questions at this time. pt denies pain/distress. belongings are bagged and given to pt. pt prefers to walk to private car to return home.
--- NOTE | 2016-08-28 21:41 | PCM.DC.MED ---
Discharge Summary Date of Service Aug 28, 2016 Dates of Hospitalization Date of Hospital Admission Aug 26, 2016 at 01:38 Date of Discharge: Aug 28, 2016 Providers: Admitting Physician: Joseluis Olmos MD Primary Care Physician: Chela Attending Physician: Joseluis Olmos MD Diagnosis at Time of Discharge Diagnosis at Time of Discharge Post Viral Pneumonia, acute Sepsis, resolved Hereditary hemorrhagic telangiectasia, chronic Insomnia, chronic Anxiety, chronic Procedures XRay, CTs & MRIs Chest x-ray preliminary read shows possible lower lobar pneumonia Cardiac Echo Impression Echocardiogram Report Name: ANDREA DE LA CRUZ AStudy Date: 08/27/2016 Height: 64 in Hospital Exam Location: [facility] Weight: 146 lb Gender: Female BSA: 1.7 m2 : 1955 Age: 61 yrs BP: 146/ 76 mmHg Reason For Study: SOB, POSSIBLE CARDIOMYOPATHY Ordering Physician: [facility]PITAL[facility] Performed By: Rishi Angel Referring Physician: PEDRITO PRADHAN Interpretation Summary The left ventricle is normal in size, wall thickness, and systolic function without any focal wall motion abnormalities. The ejection fraction is estimated to be 55-60%. Septal motion is consistent with conduction abnormality. Diastolic function could not be accurately assessed due to contradictory data. Increased E/E' is suggestive of increased LV filling pressures but RVSP is normal which would negate this. Clinical correlation is recommended. The right ventricle is normal in size, thickness and function. The right ventricular systolic pressure is estimated at 23 mmHg assuming a right atrial pressure of 3 mm Hg. The left atrium is mildly dilated. Right atrial size is normal. There is no significant valvular heart disease. The aortic root is normal size. Otherwise, no significant changes with comparing to the last two echocardiograms. Brief History 61-year-old female with a history of hereditary hemorrhagic telangiectasia, chronic epistaxis, chronic iron deficiency anemia, anxiety, and insomnia presents with a three-week history of increasing productive cough and shortness of breath. The patient states that approximately 3 weeks ago she began to notice these symptoms at the time she has 2 young grandchildren there were coming down with cough and cold type symptoms. Since that time the children have gotten better and now her is also sick with similar symptoms. She states that when she first became sick 3 weeks ago she had a fever as well as nausea and vomiting and diarrhea all of which have improved with time. Her cough is productive with dark sputum described as brownish chowdhury to yellow in color. She denies any blood in her sputum. She last bout of vomiting was approximately 4 days ago and states that that was also without blood or coffee grounds. She denies blood in her diarrhea. The patient states that she has not had her flu vaccination this year. Hospital Course 61-year-old female past medical history remarkable for hereditary hemorrhagic telangiectasia with chronic nose bleeds, and chronic iron deficiency anemia, who presents with a three-week history of increasing shortness of breath and productive cough admitted for likely post viral pneumonia. Patient has since received antibiotics and breathing improved prior to discharge. Pneumonia, present on admission, resolving - Patient had sick exposure. met sepsis criteria above, and quickly resolved. - Tested to Influenza A H3 and possible superimpose bacterial pneumonia. - Blood/sputum/antigens unremarkable however. Procalcitonin was 0.18 on discharge - Tamiflu 75 mg by mouth twice a day. She completed dose 12/19 at discharge - Ceftriaxone and azithromycin started while inpatient. Patient to continue azythromicin for another 3 days post discharge. - Recommend repeat xray 6wks from discharge for resolution of pneumonia - Cough suppressant: Tessalon tomi given Hereditary hemorrhagic telangiectasia, chronic -Patient had a nosebleed this morning - No medications necessary - We will avoid subcutaneous heparin PE prophylaxis due to risk of hemorrhage ( HHT is prone to brain aneurysms with coughing causing increased intracranial pressure) will encourage ambulation and SCD Insomnia, chronic - Temazepam 15 mg when necessary, patient takes this medication as an outpatient. However, this has not been working for the patient. - While in the hospital will order Benadryl and Tylenol daily at bedtime when necessary for insomnia Anxiety, chronic - Lorazepam 1mg outpatient will be held and left for medical team tomorrow Sepsis, acute, resolved - SIRS positive with HR 112 and RR 24 - Source likely Left lower lobe pneumonia based on Crx - Antibiotics and fluids given. Exam Vital Signs (Last) Date Time Temp Pulse Resp B/P Pulse Ox O2 Delivery O2 Flow Rate FiO2 08/28/16 14:16 36.8 89 24 131/82 95 Room Air Test 08/25/16 23:20 08/25/16 23:25 08/25/16 23:38 08/25/16 23:55 Urine Legionella pneumophilia Ag Negative (Negative) Lactic Acid Level 1.3mmol/L (0.4-2.0) Pro-B-Type Natriuretic Peptide 84.87pg/mL (0-287) Hold Anderson Top Tube Received (Received) Urine Color Yellow (YELLOW) Urine Appearance Clear (CLEAR,HAZY) Urine pH 6.0 (5.0-8.0) Urine Specific [place] 1.010 (1.003-1.035) Urine Protein Negativemg/dL (NEG,TRACE) Urine Glucose (UA) Negativemg/dL (NEGATIVE) Urine Ketones Negativemg/dL (NEGATIVE) Urine Occult Blood Moderate (NEGATIVE) Urine Nitrite Negative (NEGATIVE) Urine Bilirubin Negative (NEGATIVE) Urine Urobilinogen 1.0mg/dL (NORMAL) Urine Leukocyte Esterase Negative (NEGATIVE) Urine RBC 0-2/hpf (0-2) Urine WBC 0-5/hpf (0-5) Urine Epithelial Cells Occasional/hpf (NONE-MOD) Urine Crystals None seen (NONE SEEN) Urine Bacteria None/hpf (NONE-FEW) Urine Hyaline Casts None/lpf (NONE) Urine Granular Casts None seen (NONE SEEN) Urine Waxy Casts None seen (NONE SEEN) Urine Red Blood Cell Casts None seen (NONE SEEN) Urine White Blood Cell Casts None seen (NONE SEEN) Urine Mucus Present (None Seen) Urine Trichomonas None seen (NONE SEEN) Urine Yeast None (NONE SEEN) Urine Culture Reflexed Not indicated Prothrombin Time 11.1sec (8.1-12.5) Prothromb Time International Ratio 1.04ratio Activated Partial Thromboplast Time 31.5sec (22.8-33.0) Test 08/26/16 03:15 08/26/16 18:19 08/27/16 05:45 08/28/16 05:00 Hemoglobin A1c 5.6% (4.8-5.6) Hold Urine Received (Received) Erythrocyte Sedimentation Rate 30mm/hr (0-40) Magnesium Level 2.1mg/dL (1.6-2.6) Total Bilirubin 0.6mg/dL (0.0-1.2) Aspartate Amino Transf (AST/SGOT) 34U/L (0-50) Alanine Aminotransferase (ALT/SGPT) 26U/L (0-32) Alkaline Phosphatase 97U/L (25-165) C-Reactive Protein 2.4mg/dL (0.0-0.5) Total Protein 5.9g/dL (6.4-8.4) Albumin 3.2g/dL (3.4-5.0) Thyroid Stimulating Hormone (TSH) 1.360uIU/mL (0.450-4.500) Free Thyroxine 1.10ng/dL (0.82-1.77) White Blood Count 5.4th/mm3 (3.8-10.1) Red Blood Count 4.11mil/mm3 (3.90-5.20) Hemoglobin 11.8g/dL (12.0-15.6) Hematocrit 36.7% (35.0-46.0) Mean Corpuscular Volume 89.3fL (81-100) Mean Corpuscular Hemoglobin 28.7pg (27.0-35.0) Mean Corpuscular Hemoglobin Concent 32.2% (32.0-37.0) Red Cell Distribution Width 13.5% (12.3-15.4) Platelet Count 381bil/L (150-400) Neutrophils (%) (Auto) 54.6% (40-74) Lymphocytes (%) (Auto) 28.5% (14-46) Monocytes (%) (Auto) 11.5% (4-12) Eosinophils (%) (Auto) 4.8% (0-5) Basophils (%) (Auto) 0.2% (0-3) Sodium Level 143mEq/L (134-144) Potassium Level 4.0mEq/L (3.5-5.2) Chloride Level 107mEq/L (97-108) Carbon Dioxide Level 23mmol/L (18-29) Blood Urea Nitrogen 4mg/dL (8-27) Creatinine 0.43mg/dL (0.57-1.00) Estimat Glomerular Filtration Rate 213mL/min (>59) Glucose Level 86mg/dL (60-99) Calcium Level 8.7mg/dL (8.5-10.1) Procalcitonin 0.18ng/mL (See Comment) Microbiology Results Name: ANDREA DE LA CRUZ Age/Sex: 61/F Attend Dr: Joseluis Olmos MD Acct: [id number] Unit: [id number] Status: ADM IN Location: [place] [id number] Re08/26/16 Disch: Specimen: [id number] Collected: 08/25/16 Status: RES Req#: [id number] Received: 08/26/16 Source: SPUTUM EXP Sp Desc : Subm Dr: Pedrito Lai MD Ordered: GRAM SPT REFLEX, SPUTUM CULTURE Comments: Collected by Nurse/Unit? Y/N Y Procedure Result Verified Site Microbiology ALE CULT SPUTUM GS Final 08/26/16 SPT GRAM STAIN MANY POLYS RARE EPITHELIAL CELLS MODERATE MIXED NORMAL MARY KATE This Spec is of good Quality and acceptable for Cult INFLUENZA A PCR Final 08/26/16-1035 Organism 1 INFLUENZA A H3 INFLUENZA A PCR DETECTED TIME CALLED: 1033 DATE CALLED: 08/26/16 FLOOR/DOCTOR: TAMEKA/MONTEZ Harris CALLED BY: SEBASTIAN The performance of the film array RVP has not been established in individuals who have received the influenza vaccine. Recent administration of a nasal influenza vaccine may cause false positive results for Influenza A and/or Influenza B. Discharge Medications Discharge Medications Azithromycin (Zithromax) 250 Mg Tablet 250 MG PO DAILY Prescribed by: TIGRE COVINGTON, DO Oseltamivir Phosphate (Tamiflu) 75 Mg Capsule 75 MG PO BID Prescribed by: TIGRE COVINGTON, DO As needed Benzonatate (Tessalon Perle) 100 Mg Capsule 100 MG PO TID PRN PRN For Cough Prescribed by: TIGRE COVINGTON, DO Lorazepam (Lorazepam) 1 Mg Tablet 1 MG PO HS PRN PRN For Anxiety or Agitation ( Reported) Temazepam (Temazepam) 7.5 Mg Capsule 7.5 MG PO HS PRN PRN For Insomnia (Reported ) Additional med instructions Post Viral Pneumonia, acute -- You have what looks like postviral pneumonia. Condition has quite improved compared to initial examination. -- You are prescribed with 2 medications -- First medication is Tamiflu. Please take Tamiflu 75 mg tablet twice a day for the next 2 1/2 days. -- Recommend medication: Azithromycin 250 mg tablet, please take tablet daily for 3 days -- I have given you Etienne Braxton to help with the cough. He can take 1 pill every 8 hours. -- Have made appointment for a hospital follow-up at the [facility]. -- The appointment is on September 04 at 4:30 PM. Please come 30 minutes prior to the appointment for check in. Followup Plan Discharge Diet: No restrictions Discharge Activity: No restrictions Patient Instructions Seek care immediately if: You cough up blood. Your heart beats more than 100 beats in 1 minute. You are very tired, confused, and cannot think clearly. You have chest pain or trouble breathing. Your lips or fingernails turn chowdhury or blue. Contact your healthcare provider if: Your symptoms do not get better or get worse. You have a fever higher than 101F (38.3C). You cannot eat or have loss of appetite, nausea, or vomiting. You have questions or concerns about your condition or care Follow-up Provider: Adonay Mathew Follow-up with PCP in: 1 week Time spent 40 minutes Attending Statement I have seen and evaluated patient at bedside in addition to directly supervising care provided by resident physician. I agree with above documentation. copies to: Adonay Mathew Phuc H Aug 28, 2016 21:41 Dinh Bang DO Aug 29, 2016 08:47
[2017-01-23] MEDS ORDERED: PRAZ1CAP2 PO (10:14)
== END 2016-08-28 16:34 | disposition home or self-care (01) | DRG 871 ==
LOC: SED 22:08 → MPC 08-26 01:38 → OBSVTOIN 08-26 01:38
PROVIDERS: ADMIT Hospitalist; ATTEND Hospitalist
DX: A41.9 Sepsis, unspecified organism (principal); J10.00 Influenza due to other identified influenza virus with unspecified type of pneumonia; J18.9 Pneumonia, unspecified organism; I78.0 Hereditary hemorrhagic telangiectasia; Z86.718 Personal history of other venous thrombosis and embolism; F41.9 Anxiety disorder, unspecified; F51.04 Psychophysiologic insomnia